=== PATIENT | female | born 1975 | race African-American/Black ===

== ENCOUNTER 2017-10-30 10:38 | Emergency (ER) | payer MEDICAID ==
[~2017-10-30] VITALS: Ht 157.5 cm; Wt 137.0 kg
[2017-10-30 10:47] VITALS: BP 147/99
[2017-10-30] MEDS ORDERED: NAPROXEN375 M2 ORAL (10:59)
[2017-10-30] MEDS ORDERED: Ketorolac 60mg Inj IM ONE (11:00)
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
[2017-10-30 11:45] VITALS: BP 134/87
--- NOTE | 2017-10-30 14:38 | Diagnostic Imaging Report ---
Indication: Chest pain Technique: One view of the chest Comparison: none Findings: The heart is enlarged. Lungs and pleural spaces are clear. Impression: Cardiomegaly. No acute process
== END 2017-10-30 11:46 | disposition home or self-care (01) ==
LOC: EMR 10:55
DX: S20.219A Contusion of unspecified front wall of thorax, initial encounter (principal); W19.XXXA Unspecified fall, initial encounter; Y92.199 Unspecified place in other specified residential institution as the place of occurrence of the external cause; Y99.0 Civilian activity done for income or pay
CPT/HCPCS: 71045; 96372; 99283